=== PATIENT | male | born 1965 | race Caucasian/White ===

== ENCOUNTER 2016-10-02 22:50 | Emergency (ER) | payer OTHER ==
[~2016-10-02 22:50] MED LIST: IBUPROFEN 800 MG TAB ONE
--- NOTE | 2016-10-03 05:46 | XR ---
EXAM: XR Right Tibia and Fibula, 2 Views CLINICAL HISTORY: Reason: Fall TECHNIQUE: Frontal and lateral views of the right tibia and fibula. COMPARISON: No relevant prior studies available. FINDINGS: Bones/joints: Acute comminuted displaced fracture of the proximal fibular shaft. One shaft width medial displacement/halfshaft width anterior displacement of the distal fragment relative to the proximal fragment. Acute comminuted displaced fracture of the distal tibial shaft. Halfshaft width lateral and posterior displacement of the distal fragment relative to the proximal fragment. Slight apex angulation medially. Acute mildly displaced fracture of the distal tibia with suspected involvement of the posterior malleolus and ankle joint. Soft tissues: Soft tissue swelling of the lower leg. IMPRESSION: 1. Acute comminuted displaced fracture of the proximal fibular shaft. One shaft width medial displacement/halfshaft width anterior displacement of the distal fragment relative to the proximal fragment. 2. Acute comminuted displaced fracture of the distal tibial shaft. Halfshaft width lateral and posterior displacement of the distal fragment relative to the proximal fragment. Slight apex angulation medially. 3. Acute mildly displaced fracture of the distal tibia with suspected involvement of the posterior malleolus and ankle joint. 4. Soft tissue swelling of the lower leg. [employer] 10/03/16 06:01 Verify Receipt Verified receipt with YESENIA Peng, given to Dr. Hanson on 10/03 06:01 (-04:00)
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
== END 2016-10-02 23:35 | disposition other institution (70) ==
LOC: EC 22:50
DX: S82.451A Displaced comminuted fracture of shaft of right fibula, initial encounter for closed fracture (principal); S82.201A Unspecified fracture of shaft of right tibia, initial encounter for closed fracture; S82.301A Unspecified fracture of lower end of right tibia, initial encounter for closed fracture; V18.4XXA Pedal cycle driver injured in noncollision transport accident in traffic accident, initial encounter; Y92.009 Unspecified place in unspecified non-institutional (private) residence as the place of occurrence of the external cause
CPT/HCPCS: 29505; 99284